=== PATIENT | female | born 1960 ===

== ENCOUNTER 2024-04-03 14:15 | Outpatient (AMB) | payer OTHER, SELFPAY ==
--- NOTE | 2024-04-03 14:23 | MHC.OFFVIS ---
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 She was referred by her PCP. Patient reports that she has had ongoing left knee pain for many years now, has a prior twisting injury. She wears a brace for support with prolonged standing and walking. Has tried and failed provider guided home exercise program. 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 She was referred by her PCP. Patient reports that she has had ongoing left knee pain for many years now, has a prior twisting injury. She wears a brace for support with prolonged standing and walking. Has tried and failed provider guided home exercise program. She states she was seen by a surgeon at a different location who recommended a knee replacement? She is not really exactly for what her diagnosis is or what surgery was recommended but she feels that the surgery that was recommended was too big a surgery and she does not want to do it and comes to see me to see if there is a smaller surgery that might help her. I asked if she had an MRI plain films and she states she had an x-ray but does not have that with her today. I do not have any of her old records. She describes left knee pain in the medial aspect. She has pain with ambulation and standing from a seated position. She does not use an assistive device. 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 Results Reviewed Results Reviewed: I personally reviewed relevant radiographs. There is varus alignment bilateral knees with decreased medial joint space and mild arthritic changes in both the medial and patellofemoral compartments. Assessment & Plan Assessment & Plan (1) Arthritis of left knee: Code(s): M17.12 - Unilateral primary osteoarthritis, left knee Category: Medical Plan: This is a 63-year-old woman with left knee arthritis. She has pain but is a poor historian and describes a scenario of having been recommended to do a large knee surgery of some type presumably a total knee replacement. Radiographically and clinically I am not convinced this is appropriate. She does have decreased medial joint space with signs of arthritic changes although not severe. I would recommend injections and nonoperative management to start. I suppose an MRI could be warranted but I would like to see the records from her PCP or the previous orthopedic surgeon she saw. Once these are obtained she will return to see me. Orders: Orders XR knee LT 3V 04/03/24 M25.562 - Pain in left knee Coding Level of Care Code New Pt Level 3 (93063) Diagnoses Arthritis of left knee M17.12
[2024-04-03 14:30] VITALS: BMI 20.8
== END 2024-04-03 15:24 | disposition home or self-care (01) ==
PROVIDERS: PCP Internal Medicine; Visit Provider Orthopaedic Surgery
DX: M17.12 Unilateral primary osteoarthritis, left knee (principal)
CPT/HCPCS: 99203

== ENCOUNTER 2024-04-03 14:15 | Outpatient (REF) | payer OTHER, SELFPAY ==
--- NOTE | ~2024-04-03 | XR_ITS ---
EXAMINATION: XR KNEE, RIGHT CLINICAL INFORMATION: Pain COMPARISON: None available. TECHNIQUE: AP view of the right knee. FINDINGS: No fracture or joint effusion. Alignment is anatomic. Joint spaces are maintained. No abnormal soft tissue calcification. XR/XR knee RT 1V IMPRESSION: Normal right knee. Electronically signed by: Monty Hanna MD 06/10/2024 04:28 PM [facility]
== END 2024-04-03 14:16 | disposition home or self-care (01) ==
LOC: HO.HOSX 14:15
PROVIDERS: PCP Internal Medicine; Visit Provider Physician Assistant
DX: M25.562 Pain in left knee (principal)
CPT/HCPCS: 73560

== ENCOUNTER 2024-04-03 15:12 | Outpatient (REF) | payer OTHER, SELFPAY ==
--- NOTE | ~2024-04-03 | XR_ITS ---
EXAMINATION: XR KNEE, LEFT CLINICAL INFORMATION: M25.562 - Pain in left knee COMPARISON: None available. TECHNIQUE: Four views of the left knee. FINDINGS: No fracture, dislocation, or suspicious bone lesion. Normal bony mineralization. Normal alignment. Joint spaces appear preserved. Patellofemoral compartment appears normal. Cannot assess for joint effusion due to bent knee positioning on the lateral projection. No gross effusion seen. No soft tissue abnormalities. XR/XR knee LT 3V IMPRESSION: Normal left knee. Electronically signed by: Monty Hanna MD 06/10/2024 04:29 PM [facility]
== END 2024-04-03 15:13 | disposition home or self-care (01) ==
LOC: HO.XRAY 15:12
PROVIDERS: Visit Provider Orthopaedic Surgery
DX: M25.562 Pain in left knee (principal)
CPT/HCPCS: 73562

== ENCOUNTER → 2024-04-03 15:31 | Outpatient (BNV) | payer OTHER, SELFPAY | PROVIDERS: Visit Provider Radiology Diagnostic Radiology | DX: M25.562 Pain in left knee (principal); M25.561 Pain in right knee | CPT/HCPCS: 73560; 73562 ==

== ENCOUNTER 2024-04-25 11:30 | Outpatient (AMB) | payer OTHER, SELFPAY ==
--- NOTE | 2024-04-25 11:40 | MHC.OFFVIS ---
Vital Signs 04/25/24 11:46 Height 5 ft 2 in Weight 114 lb BMI 20.8 Intake Visit Reasons: OV - Left Knee OA - [facility] records scanned Intake Note: Olinda is a 63 year old female who presents today for a follow up of her left knee OA. Patient obtained previous notes from [facility], in 2015 an MRI was done showing a flap tear of the lateral Meniscus, moderate chondromalacia of the patella and Grade 3 fissure & probable flap of medial femoral condyle. The Left knee was injected with cortisone on 06/02/22. States last injection made her knee worse and caused a lump on the lateral aspect of knee. Currently she has constant pain and swelling making it difficult to walk. No relief with Tylenol or Motrin. Allergies aspirin [ASPIRIN] Allergy (Intermediate, Unverified 04/25/24 11:43) GI UPSET latex [LATEX] Allergy (Intermediate, Unverified 04/25/24 11:43) RED,ITCHING HPI HPI OV - Left Knee OA - [facility] records scanned: Details: Olinda is a 63 year old female who presents today for a follow up of her left knee OA. Patient obtained previous notes from [facility], in 2015 an MRI was done showing a flap tear of the lateral Meniscus, moderate chondromalacia of the patella and Grade 3 fissure & probable flap of medial femoral condyle. The Left knee was injected with cortisone on 06/02/22. States last injection made her knee worse and caused a lump on the lateral aspect of knee. Currently she has constant pain and swelling making it difficult to walk. No relief with Tylenol or Motrin. She states that it was recommended she has a left knee replacement. I reviewed the records from knee and there was a an MRI from 2016 which suggested mild osteoarthritis. 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 She is stable to varus and valgus stress. Results Reviewed Results Reviewed: I personally reviewed relevant radiographs. Radiographs suggest mild medial compartment osteoarthritis bilaterally Assessment & Plan Assessment & Plan (1) Effusion, left knee: Code(s): M25.462 - Effusion, left knee Category: Medical Plan: This is a 63-year-old with a intermittent and ongoing left knee effusion. She has difficulty ambulating. MRI from 8 years ago suggested lateral meniscal tearing and mild OA. I recommend a repeat MRI and I will see her back afterward. Coding Level of Care Code Est Pt Level 3 (07232) Diagnoses Effusion, left knee M25.462
[2024-04-25 11:46] VITALS: BMI 20.8
== END 2024-04-25 12:02 | disposition home or self-care (01) ==
PROVIDERS: PCP Internal Medicine; Visit Provider Orthopaedic Surgery
DX: M25.462 Effusion, left knee (principal)
CPT/HCPCS: 99213

== ENCOUNTER → 2024-04-25 11:30 | Outpatient (BNVA) | payer OTHER, SELFPAY | PROVIDERS: PCP Internal Medicine; Visit Provider Orthopaedic Surgery ==

== ENCOUNTER 2024-05-10 08:30 | Outpatient (REF) | payer OTHER, SELFPAY ==
--- NOTE | ~2024-05-10 | MR_ITS ---
EXAMINATION: MR KNEE WITHOUT CONTRAST, LEFT CLINICAL INFORMATION: Left knee effusion , pain COMPARISON: 04/03/2024 (radiographs) TECHNIQUE: MRI of the knee without contrast was performed using routine sequences on a high-field scanner. FINDINGS: MENISCI: Medial Meniscus: Intact Lateral Meniscus: As seen on images 18 and 19/32 of series 12, there is a very subtle linear band of intermediate signal intensity at the lateral meniscal body which extends to the inner margin of the meniscus and likely corresponds to a small horizontal tear. Lateral meniscus is otherwise intact. LIGAMENTS: Cruciate: There is a 1.5 x 0.5 x 0.5 cm ACL ganglion. No tears. PCL is normal. Collateral: Intact EXTENSOR MECHANISM: Intact ARTICULAR CARTILAGE/BONE: Patellofemoral Compartment: There is [id number] nonuniform chondral thinning at the medial patellar facet with full-thickness fissuring at the median ridge. Focal cartilage loss in the medial trochlear facet measures 6 x 5 mm in area. Normal trochlear morphology. No fractures. Medial Compartment: Focal partial-thickness nonuniform chondral thinning at the lateral half of the medial femoral condyle weightbearing surface with a small focus of full-thickness chondral fissuring and subchondral edema. Lateral Compartment: Normal JOINT FLUID AND BURSAE: Small joint effusion. No Sosa's cyst. Mild pes anserine bursitis. MR/MR knee LT wo con IMPRESSION: Small horizontal tear of the lateral meniscal body. Mild medial and patellofemoral compartment osteoarthritis. Small ACL ganglion cyst. No ligament tears or laxity. Small joint effusion. Mild pes anserine bursitis. Electronically signed by: Monty Small MD 05/28/2024 11:55 PM [facility]
== END 2024-05-10 08:31 | disposition home or self-care (01) ==
LOC: HO.MRI 08:30
PROVIDERS: PCP Internal Medicine; Visit Provider Orthopaedic Surgery
DX: M25.462 Effusion, left knee (principal)
CPT/HCPCS: 73721

== ENCOUNTER 2024-06-09 13:33 | Outpatient (AMB) | payer OTHER, SELFPAY ==
[2024-06-09 13:36] VITALS: BMI 20.8
--- NOTE | 2024-06-09 13:36 | MHC.OFFVIS ---
Vital Signs 06/09/24 13:36 Height 5 ft 2 in Weight 114 lb BMI 20.8 Intake Visit Reasons: OV- left knee MRI review Allergies aspirin [ASPIRIN] Allergy (Intermediate, Unverified 04/25/24 11:43) GI UPSET latex [LATEX] Allergy (Intermediate, Unverified 04/25/24 11:43) RED,ITCHING HPI Comments Details: Olinda is a 63 year old female who presents today for an MRI review of her left knee. Previously seen at [facility] - in 2016 an MRI was done showing a flap tear of the lateral Meniscus, moderate chondromalacia of the patella and Grade 3 fissure & probable flap of medial femoral condyle. She had a repeat MRI which was pretty unremarkable however and states that she has lateral knee swelling with walking and does not want to get a knee replacement just wants a knee arthroscopy. 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 Normal gait. Results Reviewed Results Reviewed: I personally reviewed the MR images. IMPRESSION: Small horizontal tear of the lateral meniscal body. Mild medial and patellofemoral compartment osteoarthritis. Small ACL ganglion cyst. No ligament tears or laxity. Small joint effusion. Mild pes anserine bursitis. Assessment & Plan Assessment & Plan (1) Patellofemoral arthritis of left knee: Code(s): M17.12 - Unilateral primary osteoarthritis, left knee Category: Medical Plan: This is a 61-year-old woman with mild left knee osteoarthritis predominantly in the patellofemoral joint. She wants a knee arthroscopy but I do not think the results of this are reliable and I recommend attempts at nonsurgical management 1st. She had a injection in her left knee which she states made it worse. I think a referral to pain management possible sprain versus genicular nerve ablation would be more beneficial given her young age and relative paucity of objective evidence of OA. Orders: Referrals Pain Management Referral M17.12 - Unilateral primary osteoarthritis, left knee Coding Level of Care Code Est Pt Level 4 (65294) Diagnoses Patellofemoral arthritis of left knee M17.12
== END 2024-06-09 15:13 | disposition home or self-care (01) ==
PROVIDERS: PCP Internal Medicine; Visit Provider Orthopaedic Surgery
DX: M17.12 Unilateral primary osteoarthritis, left knee (principal)
CPT/HCPCS: 99214

== ENCOUNTER → 2024-06-09 13:33 | Outpatient (BNVA) | payer OTHER, SELFPAY | PROVIDERS: PCP Internal Medicine; Visit Provider Orthopaedic Surgery | DX: M17.12 Unilateral primary osteoarthritis, left knee (principal) | CPT/HCPCS: 99212 ==

== ENCOUNTER 2024-06-20 10:32 | Outpatient (AMB) | payer OTHER, SELFPAY ==
[2024-06-20 10:39] VITALS: BP 112/52; PULSE 66; O2SAT 98; BMI 22.1
--- NOTE | 2024-06-20 10:39 | A.OFFVIS_ITS ---
Vital Signs 06/20/24 10:39 Height 5 ft 2 in Weight 121 lb BMI 22.1 BP 112/52 L Blood Pressure Location Rt brachial Position Sitting Pulse 66 Pulse Source Pulse Oximeter Pulse Oximetry (%) 98 Oxygen Delivery Method Room Air Intake Visit Reasons: Unilateral primary osteoarthritis, left knee Allergies aspirin [ASPIRIN] Allergy (Intermediate, Verified 06/20/24 10:40) GI UPSET latex [LATEX] Allergy (Intermediate, Verified 06/20/24 10:40) RED,ITCHING HPI Comments Details: Olinda is a very pleasant 64-year-old female who presents to the office today for evaluation and management of her chronic left knee pain She has been suffering with this pain for greater than 10 years. Reports it started after she fell and landed on her left knee. Previously evaluated by orthopedic surgeons, she had a steroid injection without improvement of her symptoms. Recently evaluated orthopedics [facility], MRI was performed, results as per below. No surgical intervention warranted so patient was referred here for evaluation She states that the pain is worse with walking, it will also swell laterally with walking. She states the swelling causes the most discomfort. Ultimately she was interested in surgical repair of the torn meniscus this was not offered by Orthopedics. She is considering a 2nd opinion. She has tried Tylenol and NSAIDs without improvement of her symptoms. States she is unable to perform physical therapy as it worsened the pain. Pain today is rated a 6/10, constant and worse with walking and movement of the knee. She has been using a knee brace, states she is unable to walk without the brace as it is too painful. 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 Answers questions appropriately. Fully engaged in examination. Skin: warm, dry, intact HEENT: Normocephalic. Hearing intact. Cardiac: External chest normal in appearance. Respiratory: No cough, audible wheezing or stridor. Abdomen: without gross distension. MS: No obvious swelling or deformities. Left knee: Tenderness lateral joint line. No swelling or bruising noted. Ambulates with steady gait, slightly favoring left leg. Patient wearing a brace the left knee. Neurological: Oriented to person, place, time and situation. Thought process intact. No gait abnormalities appreciated. Psychiatric: Appropriate mood and affect. Good judgment and insight. Results Reviewed Results Reviewed: 05/10/24 MRI Knee Left IMPRESSION: Small horizontal tear of the lateral meniscal body. Mild medial and patellofemoral compartment osteoarthritis. Small ACL ganglion cyst. No ligament tears or laxity. Small joint effusion. Mild pes anserine bursitis. 04/03/24 XR/XR knee LT 3V IMPRESSION: Normal left knee. Assessment & Plan Assessment & Plan (1) Left knee pain: Code(s): M25.562 - Pain in left knee Category: Medical Plan Patient very pleasant 64-year-old female who presented to the office today for evaluation and management of her chronic left knee pain Patient has exhausted conservative therapy including, NSAIDs, bracing, steroid injections. She is unable to tolerate physical therapy secondary to worsening pain. Discussed options for treatment including diagnostic genicular nerve block, genicular RFA, sprint PNS. Patient was given brochures for home review. She is interested in a 2nd opinion from orthopedics to discuss surgical options. She would like to this before proceeding with any procedures here. All questions and concerns were answered, patient agrees with the plan. She will call the office to schedule follow-up at her convenience. Coding Level of Care Code New Pt Level 4 (55590) Complex EM visit Add On G2211 Diagnoses Left knee pain M25.562
== END 2024-06-20 10:56 | disposition home or self-care (01) ==
PROVIDERS: PCP Internal Medicine; Visit Provider Registered Nurse Emergency
DX: M25.562 Pain in left knee (principal)
CPT/HCPCS: 99204; G2211

== ENCOUNTER → 2024-06-20 10:32 | Outpatient (BNVA) | payer OTHER, SELFPAY | PROVIDERS: PCP Internal Medicine; Visit Provider Registered Nurse Emergency | DX: M25.562 Pain in left knee (principal) | CPT/HCPCS: 99202 ==